=== PATIENT | male | born 1975 | race African-American/Black ===

== ENCOUNTER 2022-07-24 16:22 | Emergency (ER) | payer MEDICAID, OTHER ==
[~2022-07-24] VITALS: Ht 182.9 cm; Wt 101.0 kg
[~2022-07-24 16:22] MED LIST: DILT240C91 MT; NICO-681 TD; THIA100T72 PO
[2022-07-24] MEDS ORDERED: ASPIRIN 81MG TABLET PO ONE (17:15)
[2022-07-24 18:00] LABS: BASOPHILS % 0.8 % (0.0-2.0); EOSINOPHILS % 1.4 % (0.0-5.0); HEMOGLOBIN. 14.6 g/dL (14.0-18.0); LYMPHOCYTES % 33.2 % (20.0-50.0); MEAN CORPUSCULAR HEMOGLOBIN 35.6 pg (28.0-32.0); MEAN CORPUSCULAR VOLUME 100.5 fL (80.0-94.0); MONOCYTES % 7.4 % (2.0-8.0); NEUTROPHILS % 57.2 % (40.0-76.0); PLATELET 179 x1000/uL (130-400); RED BLOOD CELL COUNT 4.08 mill/uL (4.7-6.1); RED CELL DISTRIBUTION WIDTH 16.3 % (11.6-14.6)
[2022-07-24 18:01] LABS: CHLORIDE 101 mEq/L (98-107)
[2022-07-24 18:12] LABS: ETHANOL BLOOD 216 mg/dL
[2022-07-24] MEDS ORDERED: POTASSIUM CHLORIDE 20MEQ/PACKET PO ONE (20:00)
[2022-07-24] MEDS ORDERED: POTASSIUM CHLORIDE 20MEQ/PACKET PO NR (22:45)
[2022-07-24] MEDS ORDERED: ASPIRIN 325MG TABLET PO NR (22:45)
[2022-07-25 01:50] LABS: CHLORIDE 104 mEq/L (98-107)
[2022-07-25 02:24] VITALS: BP 112/78
== END 2022-07-25 02:27 | disposition home or self-care (01) ==
LOC: ER 16:40
DX: R07.9 Chest pain, unspecified (principal); E87.6 Hypokalemia; I10 Essential (primary) hypertension; R56.9 Unspecified convulsions; F41.9 Anxiety disorder, unspecified
CPT/HCPCS: 36415; 71045; 80053; 80320; 83880; 84484; 85025; 93005; 99285; G0480

== ENCOUNTER 2022-08-09 17:19 | Emergency (ER) | payer MEDICAID ==
[~2022-08-09] VITALS: Ht 185.4 cm; Wt 117.0 kg
[2022-08-10] MEDS ORDERED: KETOROLAC 60MG/2ML VIAL IM STA (00:48)
[2022-08-10] MEDS ORDERED: LORAZEPAM 1MG TABLET PO ONE (01:00)
[2022-08-10] MEDS ORDERED: CLONIDINE 0.1MG TABLET PO ONE (01:00)
[2022-08-10 01:33] LABS: BASOPHILS % 1.2 % (0.0-2.0); HEMATOCRIT. 43.3 % (42.0-52.0); HEMOGLOBIN. 15.3 g/dL (14.0-18.0); LYMPHOCYTES % 27.8 % (20.0-50.0); MEAN CORPUSCULAR HEMOGLOBIN 35.8 pg (28.0-32.0); MEAN CORPUSCULAR VOLUME 101.6 fL (80.0-94.0); MEAN PLATELET VOLUME 9.3 fl (7.4-10.4); MONOCYTES % 8.1 % (2.0-8.0); NEUTROPHILS % 61.9 % (40.0-76.0); PLATELET 166 x1000/uL (130-400); RED BLOOD CELL COUNT 4.26 mill/uL (4.7-6.1); RED CELL DISTRIBUTION WIDTH 15.4 % (11.6-14.6)
[2022-08-10 01:48] LABS: CHLORIDE 104 mEq/L (98-107)
[2022-08-10 01:58] LABS: ETHANOL BLOOD 98 mg/dL
[2022-08-10] MEDS ORDERED: CALCIUM GLUCONATE 1GM PREMIX 50 ML IV NR (02:45)
[2022-08-10] MEDS ORDERED: POTASSIUM CHLORIDE 20MEQ TABLET SR PO NR (02:45)
[2022-08-10] MEDS ORDERED: HYDRALAZINE 20MG/ML VIAL IV ONE (03:30)
[2022-08-10 04:36] VITALS: BP 159/86
[2022-08-10] MEDS ORDERED: DILT240C95 PO (05:14)
[2022-08-10] MEDS ORDERED: NAPR-681 PO (05:14)
[2022-08-10 06:04] LABS: CLARITY URINE CLEAR (CLEAR); COLOR URINE YELLOW (YELLOW); KETONES URINE NEGATIVE (NEGATIVE); LEUKOCYTE ESTERASE URINE NEGATIVE (NEGATIVE); NITRITE URINE NEGATIVE (NEGATIVE); OCCULT BLOOD URINE NEGATIVE (NEGATIVE); PH URINE 5.5 (4.5-8.0); PROTEIN URINE NEGATIVE (NEGATIVE); SPECIFIC GRAVITY URINE 1.021 (1.005-1.030)
[2022-08-10 10:25] LABS: *AMPHETAMINES SCREEN URINE NEGATIVE (NEGATIVE); *BARBITURATES SCREEN URINE NEGATIVE (NEGATIVE); *BENZODIAZEPINES SCREEN URINE PRESUMTIVE POSITIVE (NEGATIVE); *COCAINE SCREEN URINE NEGATIVE (NEGATIVE); CANNABINOID URINE SCREEN NEGATIVE (NEGATIVE); METHADONE URINE SCREEN NEGATIVE (NEGATIVE); OPIATES URINE SCREEN NEGATIVE (NEGATIVE); PHENCYCLIDINE URINE SCREEN NEGATIVE (NEGATIVE)
[2022-08-12] MEDS ORDERED: LOSA100T3 PO (15:07)
[2022-08-12] MEDS ORDERED: LIP40 PO (15:07)
[2022-08-12] MEDS ORDERED: PANT40TA51 PO (15:07)
[2022-08-12] MEDS ORDERED: AMLO5TAB88 PO (15:07)
[2022-08-12] MEDS ORDERED: ASPI-1160 PO (15:07)
== END 2022-08-10 05:39 | disposition home or self-care (01) ==
LOC: ER 17:19
DX: I11.0 Hypertensive heart disease with heart failure (principal); I10 Essential (primary) hypertension; E83.51 Hypocalcemia; E87.6 Hypokalemia; R74.02 Elevation of levels of lactic acid dehydrogenase [LDH]; F10.10 Alcohol abuse, uncomplicated; Y90.4 Blood alcohol level of 80-99 mg/100 ml; I50.9 Heart failure, unspecified; Z79.899 Other long term (current) drug therapy; Z20.822 Contact with and (suspected) exposure to COVID-19
CPT/HCPCS: 36415; 71045; 80053; 80305; 80320; 81003; 83880; 84484; 85025; 87426; 93005; 96372; 96374; 99285; C9803; J0360; J0610; J1885; Z7610; G0480